=== PATIENT | female | born 1985 ===

== ENCOUNTER → 2018-05-29 | Emergency (ER) | payer MEDICAID, OTHER ==
[~2018-05-29] VITALS: Ht 152.4 cm; Wt 59.0 kg
[2018-05-29 19:09] VITALS: BP 144/81
--- NOTE | 2018-05-29 20:55 | NUR ---
PATIENT IS INCONTINENT OF URINE AT THIS TIME
--- NOTE | 2018-05-29 20:59 | NUR ---
PATIENT STATES THAT SHE NOW FEELS LIKE SHE CAN URINATE; PATIENT PROVIDED URINE SAMPLE PATIENT STATES THAT SHE CANT REMEMBER LAST BM
--- NOTE | 2018-05-29 21:45 | NUR ---
IN ROMM WITH PA FOR RECTAL TONE EXAM, PER PA PATIENT HAS RECTAL TONE. PATIENT DOES NOT REMEMBER WHEN HER LAST BOWEL MOVEMENT WAS AND IS TAKING PRESCRIBED SENNA 8.6 MG DAILY
[2018-05-29 21:46] LABS: URINE HCG NEGATIVE (NEG)
--- NOTE | 2018-05-29 21:50 | NUR ---
PATIENT STATES THAT "NEED FRESH AIR" WHEN ASKED IF SHE IS GOING TO SMOKE SHE SAID, "YES." WHEN PATIENT WAS INFORMED THAT WE ARE A NON SMOKING FACILITY, SHE STATED "OTHER PEOPLE ARE DOING IT" I TOLD HER THAT SHE IS FREE TO LEAVE AT ANY TIME, BUT I AM RECOMENDING THAT SHE STAY IN HER ROOM BECAUSE THE PROVIDER MAY ARRIVE
[2018-05-29 21:52] LABS: COLOR,URINE YELLOW (Yellow); GLUCOSE, URINE NEGATIVE (Neg); KETONES,URINE NEGATIVE (Neg); LEUKOCYTE ESTERASE ,URINE NEGATIVE (Neg); NITRITES, URINE NEGATIVE (Neg); OCCULT BLOOD,URINE NEGATIVE (Neg); PROTEIN,URINE NEGATIVE (Neg); UROBILINOGEN,URINE 0.2 E.U/dL (0.2-1.0)
[2018-05-29 21:57] LABS: CLARITY,URINE CLEAR (Clear); UA COLLECTION TYPE CLN CATCH MIDSTREAM
--- NOTE | 2018-05-29 21:58 | NUR ---
PATIENT NOW STATES THAT SHE POOPED DOWN THE HALLWAY TODAY AND HER PICKED IT UP. SHE STATES THAT SHE COULD NOT FEEL HERSELF POOPING
--- NOTE | 2018-05-29 22:15 | NUR ---
PATIENT STATES THAT SHE CAN NOT BEND AND TOUCH HER TOES BUT PATIENT IS OBSERVED SLOUCHED OVER WITH HER HANDS ON THE BOTOM(FOOT) RUNG OF THE WC
[2018-05-29 22:37] LABS: URINE AMPHETAMINE SCREEN NEGATIVE (Neg); URINE BARBITUATE SCREEN NEGATIVE (Neg); URINE BENZODIAZEPINES SCREEN NEGATIVE (Neg); URINE CANNABINOID SCREEN NEGATIVE (Neg); URINE COCAINE SCREEN NEGATIVE (Neg); URINE METHADONE SCREEN NEGATIVE (Neg); URINE OPIATE SCREEN POSITIVE (Neg); URINE PHENCYCLIDINE SCREEN NEGATIVE (Neg)
== END | disposition left against medical advice (07) ==
LOC: ER 19:05
DX: M54.5 Low back pain (principal); R32 Unspecified urinary incontinence; F17.200 Nicotine dependence, unspecified, uncomplicated; Z90.49 Acquired absence of other specified parts of digestive tract; Z98.890 Other specified postprocedural states
CPT/HCPCS: 80305; 81003; 81025; 99284